=== PATIENT | male | born 1965 | race Caucasian/White ===

== ENCOUNTER → 2020-03-13 | Outpatient (CLI) | payer OTHER ==
--- NOTE | 2020-03-17 15:00 | ECHO ---
DATE OF PROCEDURE: 03/13/2020 Age: 55 Gender: Male Height: 69 inches Weight: 157 pounds Body surface area: 1.86 m2 PATIENT LOCATION: Outpatient. REFERRING PHYSICIAN: LUIS Day INDICATION: Murmur. MEASUREMENTS: 2D Measurements: RV 3.6 cm LV 4.4 cm Septum 1.0 cm Posterior wall 1.0 cm Aortic Root 3.5 cm LA 3.7 cm LVEF 75% Doppler Measurements: AV 2.8 m/s LVOT 0.9 m/s Mean AV gradient 15 mmHg Dimensionless index 0.35 MV-E 77, A 71, E/A ratio 1.1 Early mitral deceleration time 190 msec E prime medial 8.3, A prime medial 10.8, E prime lateral 10.7 Average E/E prime ratio 8.1/PCWP - 12 mmHg PV 0.9 msec Pulmonary artery acceleration time 109 msec PASP 30 mmHg IVC 1.8 cm COMMENTS: Normal sinus rhythm without intraventricular conduction disturbance. M-mode and two-dimensional echocardiography was performed with pulse, continuous wave, color flow, and tissue Doppler studies. Normal left ventricular size, wall thickness, and hyperkinetic wall motion. Normal left atrial size and Doppler assessment of left ventricular enlargement diastolic function and estimated mean left atrial pressure. Normal right heart chamber sizes and motion with estimated pulmonary arterial pressure upper limits of normal. Normal inferior vena cava (IVC) size and collapse against an elevated central venous pressure. Normal aortic diameters without coarctation. Bicuspid aortic valve with commisures at 5 and 10 o'clock. Asymmetrical moderately severe anterior cusp thickening/calcification and reduced anterior cusp motion, but the posterior cusp appeared to move normally. Obvious moderate to moderately severe posteriorly directed aortic insufficiency. Normal appearing mitral valvular apparatus without restriction of leaflet motion or posterior systolic buckling. Very mild posteriorly directed mitral insufficiency. Normal appearing tricuspid valve with very mild to trace insufficiency. No apparent intracardiac mass or pericardial effusion. Would recommend a follow-up study in two years time to reassess valvular structure and function. [facility]
== END ==
LOC: M CARPUL 09:18
PROVIDERS: ATTEND Physician Assistant Medical
DX: R01.1 Cardiac murmur, unspecified (principal)

== ENCOUNTER → 2022-04-08 | Outpatient (CLI) | payer OTHER | LOC: M CARPUL 09:35 | PROVIDERS: ATTEND Internal Medicine Cardiovascular Disease | DX: Q23.1 Congenital insufficiency of aortic valve (principal) ==

== ENCOUNTER → 2023-09-01 | Outpatient (CLI) | payer OTHER | LOC: M RAD 08:48 | PROVIDERS: ATTEND Internal Medicine | DX: Z87.891 Personal history of nicotine dependence (principal) ==

== ENCOUNTER → 2023-10-07 | Outpatient (CLI) | payer OTHER | LOC: M RAD 12:36 | PROVIDERS: ATTEND Nurse Practitioner Family | DX: D35.02 Benign neoplasm of left adrenal gland (principal) ==

== ENCOUNTER 2023-11-15 10:33 | Emergency (ER) | payer OTHER ==
[~2023-11-15] VITALS: Ht 175.3 cm; Wt 76.8 kg
[2023-11-15 10:36] VITALS: BP 150/80; TEMP 98.5; O2SAT 96
[2023-11-15] MEDS ORDERED: AMLO1TAB25 PO (10:49)
[2023-11-15] MEDS ORDERED: BENA20TA PO (10:49)
[2023-11-15] MEDS ORDERED: ROSU5TAB40 PO (10:49)
[2023-11-15] MEDS: LIDOCAINE 1% MDV 20ML VIAL IM ONE (11:20)
[2023-11-15] MEDS: BOOSTRIX VACCINE (TETANUS/DIPHTH/ACEL. PERTUSSIS) 0.5ML SYR IM ONE (11:24)
[2023-11-15] MEDS: CEPHALEXIN 500 MG CAP PO ONE (11:46)
[2023-11-15] MEDS ORDERED: CEPH500C PO (12:40)
== END 2023-11-15 12:45 | disposition home or self-care (01) ==
LOC: M ED 10:33
DX: S68.626A Partial traumatic transphalangeal amputation of right little finger, initial encounter (principal); S62.666B Nondisplaced fracture of distal phalanx of right little finger, initial encounter for open fracture; S61.214A Laceration without foreign body of right ring finger without damage to nail, initial encounter; W26.8XXA Contact with other sharp object(s), not elsewhere classified, initial encounter; Y93.89 Activity, other specified; Y99.0 Civilian activity done for income or pay; I10 Essential (primary) hypertension; F17.200 Nicotine dependence, unspecified, uncomplicated; E78.5 Hyperlipidemia, unspecified; Z79.899 Other long term (current) drug therapy

== ENCOUNTER → 2023-11-17 | Outpatient (CLI) | payer OTHER ==
[~2023-11-17] MED LIST: AMLO1TAB25 PO; BENA20TA PO; CEPH500C PO; ISOVUE-370 76% 100ML VIAL As Ordered ONE; ROSU5TAB40 PO
== END ==
LOC: M RAD 06:48
PROVIDERS: ATTEND Nurse Practitioner Family
DX: E27.9 Disorder of adrenal gland, unspecified (principal)
CPT/HCPCS: 74160; Q9967

== ENCOUNTER → 2023-12-09 | Outpatient (CLI) | payer OTHER ==
[~2023-12-09] MED LIST changes: -ISOVUE-370 76% 100ML VIAL As Ordered ONE
== END ==
LOC: M SOG 07:54
PROVIDERS: ATTEND Physician Assistant
DX: M79.641 Pain in right hand (principal); S52.611K Displaced fracture of right ulna styloid process, subsequent encounter for closed fracture with nonunion; S62.636K Displaced fracture of distal phalanx of right little finger, subsequent encounter for fracture with nonunion; M19.041 Primary osteoarthritis, right hand

== ENCOUNTER → 2024-01-09 | Outpatient (CLI) | payer OTHER | LOC: M SOG 07:24 | PROVIDERS: ATTEND Physician Assistant | DX: S62.636D Displaced fracture of distal phalanx of right little finger, subsequent encounter for fracture with routine healing (principal) ==

== ENCOUNTER → 2024-03-14 | Outpatient (CLI) | payer OTHER ==
[~2024-03-14] MED LIST changes: -ROSU5TAB40 PO; +ROSU5TAB49 PO
== END ==
LOC: M PLAIMG 12:15
PROVIDERS: ATTEND Nurse Practitioner Adult Health
DX: J44.9 Chronic obstructive pulmonary disease, unspecified (principal)

== ENCOUNTER 2024-08-11 02:36 | Emergency (ER) | payer OTHER, BC ==
[~2024-08-11] VITALS: Ht 172.7 cm; Wt 82.6 kg
[2024-08-11] MEDS ORDERED: AMOX500T2 PO (04:15)
[2024-08-11] MEDS ORDERED: AMOX875T2 PO (06:19)
[2024-08-11] MEDS ORDERED: IBUP-1022 PO (06:19)
[2024-08-11 06:31] VITALS: BP 147/72; TEMP 98.4; O2SAT 99
== END 2024-08-11 06:32 | disposition home or self-care (01) ==
LOC: M ED 02:36
DX: L03.113 Cellulitis of right upper limb (principal); I10 Essential (primary) hypertension; F17.210 Nicotine dependence, cigarettes, uncomplicated; F10.10 Alcohol abuse, uncomplicated; Z79.1 Long term (current) use of non-steroidal anti-inflammatories (NSAID); Z79.2 Long term (current) use of antibiotics; Z79.899 Other long term (current) drug therapy

== ENCOUNTER → 2024-11-20 | Outpatient (CLI) | payer BC, OTHER ==
[~2024-11-20] MED LIST changes: +AMOX500T2 PO; +AMOX875T2 PO; +IBUP-1022 PO
== END ==
LOC: M CARPUL 07:15
PROVIDERS: ATTEND Nurse Practitioner Family
DX: J43.9 Emphysema, unspecified (principal)

== ENCOUNTER → 2025-04-12 | Outpatient (CLI) | payer OTHER ==
[~2025-04-12] MED LIST changes: -IBUP-1022 PO; +IBUP600T42 PO
== END ==
LOC: M RAD 07:49
PROVIDERS: ATTEND Internal Medicine Critical Care Medicine
DX: R91.8 Other nonspecific abnormal finding of lung field (principal); Z87.891 Personal history of nicotine dependence